=== PATIENT | female | born 1990 ===

== ENCOUNTER 2016-12-20 10:10 | Emergency (ER) | payer OTHER ==
[~2016-12-20] VITALS: Ht 160 cm; Wt 60.0 kg
[2016-12-20 10:12] VITALS: BP 131/74; PULSE 100; RESP 18; TEMP 98; O2SAT 100
[2016-12-20 10:29] VITALS: O2SAT 97
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
[2016-12-20] MEDS ORDERED: IBUP-1129 PO (12:33)
[2016-12-20] MEDS ORDERED: CYCL1TAB29 PO (12:33)
== END 2016-12-20 12:42 | disposition home or self-care (01) ==
LOC: EDSEX → PHEFT 10:10
DX: S00.83XA Contusion of other part of head, initial encounter (principal); V49.49XA Driver injured in collision with other motor vehicles in traffic accident, initial encounter; Y93.89 Activity, other specified; Y92.410 Unspecified street and highway as the place of occurrence of the external cause; M25.552 Pain in left hip; M25.551 Pain in right hip
CPT/HCPCS: 70450; 72170